=== PATIENT | male | born 1940 | race Caucasian/White ===

== ENCOUNTER → 2016-12-02 | Outpatient (CLI) | payer MEDICARE ==
[~2016-12-02] MED LIST: ALPR.25 PO; ATOR1TAB18 PO; ATOR80TA PO; AZIT250T43 PO; BUPR100T4 PO; CEFD300C PO; CEPH-460 PO; FOLI1TAB6 PO; GUAISYP7 PO; L-LY500T4 PO; LEVS0.123 PO; LOSA25; LOSA25TA PO; METO50TA; METO50TA PO; MULT-65 PO; OMEGCAP PO; ROBIACUDC PO; TAMS0.4C4; TAMS0.4C4 PO; TEMA15 PO; ZOLP10TA3 PO; [UNRECOGNIZED DRUG - CODE]
[2016-12-02 15:31] LABS: HEMATOCRIT 41.6 % (39.0-51.0); MEAN CELL VOLUME 92.5 FL (80.0-100.0); MEAN CORPUSCULAR HEMOGLOBIN 30.5 PG (27.0-34.0); PLATELET COUNT 242 TH/MM3 (150-450); RED CELL DISTRIBUTION WIDTH 12.4 % (11.6-17.2); REVIEW FLAG FINAL; WHITE BLOOD COUNT 6.2 TH/MM3 (4.0-11.0)
--- NOTE | 2016-12-03 15:23 | EKG ---
Date Performed: 12/02/2016 Time Performed: 14:30:36 PTAGE: 76 years EKG: SINUS BRADYCARDIA WITH OCCASIONAL SUPRAVENTRICULAR PREMATURE COMPLEXES BORDERLINE ECG PREVIOUS TRACING : 04/16/2015 15.34 Compared to the previous tracing rate slower DOCTOR: Lauren Bernard Interpretating Date/Time 12/03/2016 15:22:53
== END ==
LOC: CPRE 13:36
PROVIDERS: ATTEND Specialist
DX: Z01.810 Encounter for preprocedural cardiovascular examination (principal); Z01.812 Encounter for preprocedural laboratory examination; R94.31 Abnormal electrocardiogram [ECG] [EKG]
CPT/HCPCS: 36415; 85027; 93005

== ENCOUNTER 2016-12-04 13:03 | Emergency (ER) | payer MEDICARE ==
[~2016-12-04 13:03] MED LIST changes: -ACETAMINOPHEN 1000 MG/100 ML 100 ML IV ONE; -ACETAMINOPHEN/HYDROcodone 325 MG/7.5 MG TAB PO PRN; -CHLORHEXIDINE GLUCONATE 2 % 1 PACK (2 CLOTHS) TOPICAL PRN; -DEXAMETHASONE SOD PHOS 4 MG/ML VIAL ONE; -DO NOT ADM ANY ANTICOAGULANT DRUGS PRN; -EPINEPHrine HCL (1:1000) 30 MG/30 ML VIAL ONE; -FAMOTIDINE 20 MG/2 ML VIAL ONE; -GLYCOPYRROLATE 1 MG/5 ML SYRINGE IV PUSH ONE; -INSULIN HUMAN REGULAR 1,000 UNITS/10 ML VIAL SQ PRN; -LACTATED RINGER'S 1000 ML IV PRN; -LEVS0.123 PO; -LIDOCAINE 1%/EPINEPHrine 1:100,000 SOLN 30 ML VIAL INFIL ONE; -LIDOCAINE HCL 1% PF 5 ML AMPULE OTHER ONE; -METOPROLOL TARTRATE 25 MG TAB PO PRN; -MORPHINE SULFATE 4 MG/ML INJ IV PRN; -NEOSTIGMINE 3 MG/3 ML SYR IV ONE; -ONDANSETRON HCL 4 MG/2 ML VIAL IV PUSH ONE; -ONDANSETRON HCL 4 MG/2 ML VIAL IV PUSH PRN; -PHENYLEPH/NS 1000 MCG/10 ML SYR IV ONE; -POVIDONE IODINE 5% (ANTISEPSIS KIT) 4 APPLICATIONS EACH NARE PRN; -PROPOFOL 200 MG/20 ML AMP IV ONE; -ROCURONIUM INJ 50 MG/5 ML SYRINGE IV PUSH ONE; -SODIUM CHLORID 0.9% 500 ML IV PRN; -[UNRECOGNIZED DRUG - CODE]; -ePHEDrine/NS 25 MG/5 ML SYR IV ONE
[2016-12-04 13:30] LABS: BLOOD, URINE NEG (NEG); GLUCOSE,URINE NEG (NEG); KETONE, URINE NEG (NEG); NITRITE,URINE NEG (NEG); PH, URINE 6.5 (5.0-8.5)
[2016-12-04 13:39] LABS: METHOD OF COLLECTION CLEAN CATCH; URINE COLOR YELLOW (YELLW/STRAW)
--- NOTE | 2016-12-04 13:39 | PD ---
HPI Chief Complaint: Complaint Time Seen by Provider: 13:27 Travel History International Travel<30 days: No Contact w/Intl Traveler<30days: No Traveled to known affect area: No History of Present Illness HPI The patient is a 76-year-old male who presents to the emergency department via private vehicle for urinary retention. The patient had septoplasty performed earlier today by the ENT physician, Dr. Barton. The patient states after surgery he was unable to urinate, has had minimal output and complains of abdominal distention. The patient does have a history of benign prostatic hypertrophy and currently takes Flomax twice a day. He denies any history of severe urinary retention requiring a Franks catheter, however, is followed by his urologist Dr. Park. The patient does complain of abdominal distention with difficulty urinating, denies any nausea, vomiting, or constipation. He denies any associated fever, chills, or sweats. He does complain of a dry mouth after the surgery. Symptoms are mild to moderate, possibly exacerbated by BPH and anesthesia this morning, and there are no current alleviating factors. PFSH Past Medical History Atrial Fibrillation: Yes (STATES SECONDARY TO DEHYDRATION) Autoimmune Disease: Yes (GUILLANNE BARRE) Anxiety: Yes Depression: Yes Heart Rhythm Problems: Yes (afib) Cancer: No Cardiovascular Problems: Yes (PAROXYSMAL ATRIAL FIBRILLATION, BRADYCARDIA) High Cholesterol: Yes Congestive Heart Failure: No Diabetes: No Diminished Hearing: No Endocrine: No Gastrointestinal Disorders: Yes (DIVERTICULUM QUESTIONABLE) Genitourinary: Yes (BPH) Hepatitis: No Hiatal Hernia: No Hypertension: Yes Immune Disorder: No Musculoskeletal: No Neurologic: Yes (GUILLAIN-BARRE SYNDROME) Psychiatric: Yes Reproductive: No Respiratory: No Thyroid Disease: No Tetanus Vaccination: < 5 Years Influenza Vaccination: Yes Past Surgical History Abdominal Surgery: Yes (APPENDECTOMY) AICD: No Appendectomy: Yes Cardiac Surgery: No Ear Surgery: No Endocrine Surgery: No Eye Surgery: No Genitourinary Surgery: No Joint Replacement: No Oral Surgery: No Pacemaker: No Thoracic Surgery: No Tonsillectomy: Yes Other Surgery: Yes (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, NASAL RECONSTRUCTION, sinus surgery today) Social History Alcohol Use: Yes (GLASS OF WINE AT NIGHT) Tobacco Use: No Substance Use: No Allergies-Medications (Allergen,Severity, Reaction): Coded Allergies: lamotrigine (Verified Allergy, Severe, Itching, 12/04/16) Reported Meds & Prescriptions Reported Meds & Active Scripts Active Reported Keflex (Cephalexin) 500 Mg Cap 500 Mg PO Q12H Bupropion HCl 100 Mg Tab 100 Mg PO DAILY l-Lysine (Lysine) 500 Mg Tab 1 Tab PO DAILY [place]-3 Fish Oil/Vitamin (Fish Oil-Cholecalciferol) 1,000-1,000 Mg Cap 1 Cap PO DAILY Folic Acid 1 Mg Tablet 1 Mg PO DAILY Multi-Vitamin Daily (Multiple Vitamin) 1 Tab Tab 1 Tab PO DAILY Zolpidem (Zolpidem Tartrate) 10 Mg Tab 10 Mg PO HS PRN Tamsulosin (Tamsulosin HCl) 0.4 Mg Cap 0.4 Mg PO BID Metoprolol Tartrate 50 Mg Tab 50 Mg PO BID Losartan (Losartan Potassium) 25 Mg Tab 25 Mg PO DAILY PRN Xanax (Alprazolam) 0.25 Mg Tab 0.25 Mg PO Q6H PRN Atorvastatin (Atorvastatin Calcium) 80 Mg Tab 80 Mg PO HS Review of Systems Except as stated in HPI: all other systems reviewed are Neg General / Constitutional: No: Fever HENT: Positive: Other (septoplasty performed earlier today) Cardiovascular: No: Chest Pain or Discomfort Respiratory: No: Shortness of Breath Gastrointestinal: Positive: Abdominal Pain, No: Nausea, Vomiting Genitourinary: Positive: Decreased Urinary Output Physical Exam Narrative GENERAL: Awake, alert, pleasant 76-year-old male who appears his stated age is in no acute respiratory distress. SKIN: Focused skin assessment warm/dry. HEAD: Atraumatic. Normocephalic. EYES: Pupils equal and round. No scleral icterus. No injection or drainage. ENT: Nasal dressing in place. NECK: Trachea midline. No JVD. GASTROINTESTINAL: Abdomen reveals distended bladder just below the umbilicus. MUSCULOSKELETAL: No obvious deformities. No clubbing. No cyanosis. No edema. NEUROLOGICAL: Awake and alert. No obvious cranial nerve deficits. Motor grossly within normal limits. Normal speech. PSYCHIATRIC: Appropriate mood and affect; insight and judgment normal. Data Data Orders Orders Urinalysis - C+S If Indicated (12/04/16 13:14) Urinary Catheter Insert/Apply (12/04/16 13:27) Basic Metabolic Panel (Bmp) (12/04/16 13:27) Labs Laboratory Tests Test 12/04/16 13:15 12/04/16 14:12 Urine Collection Type CLEAN CATCH Urine Color YELLOW Urine Turbidity CLEAR Urine pH 6.5 Urine Specific [place] 1.011 Urine Protein NEG mg/dL Urine Glucose (UA) NEG mg/dL Urine Ketones NEG mg/dL Urine Occult Blood NEG Urine Nitrite NEG Urine Bilirubin NEG Urine Leukocyte Esterase NEG Urine RBC 0-3 /hpf Urine WBC 0-2 /hpf Microscopic Urinalysis Comment CULT NOT INDICATED Blood Urea Nitrogen 17 MG/DL Creatinine 0.90 MG/DL Random Glucose 134 MG/DL Calcium Level 9.1 MG/DL Sodium Level 138 MEQ/L Potassium Level 4.3 MEQ/L Chloride Level 104 MEQ/L Carbon Dioxide Level 28.3 MEQ/L Anion Gap 6 MEQ/L Estimat Glomerular Filtration Rate 82 ML/MIN [facility] Medical Decision Making Medical Screen Exam Complete: Yes Emergency Medical Condition: Yes Medical Record Reviewed: Yes Interpretation(s) Laboratory Tests Test 12/04/16 13:15 12/04/16 14:12 Urine Collection Type CLEAN CATCH Urine Color YELLOW Urine Turbidity CLEAR Urine pH 6.5 Urine Specific [place] 1.011 Urine Protein NEG mg/dL Urine Glucose (UA) NEG mg/dL Urine Ketones NEG mg/dL Urine Occult Blood NEG Urine Nitrite NEG Urine Bilirubin NEG Urine Leukocyte Esterase NEG Urine RBC 0-3 /hpf Urine WBC 0-2 /hpf Microscopic Urinalysis Comment CULT NOT INDICATED Blood Urea Nitrogen 17 MG/DL Creatinine 0.90 MG/DL Random Glucose 134 MG/DL Calcium Level 9.1 MG/DL Sodium Level 138 MEQ/L Potassium Level 4.3 MEQ/L Chloride Level 104 MEQ/L Carbon Dioxide Level 28.3 MEQ/L Anion Gap 6 MEQ/L Estimat Glomerular Filtration Rate 82 ML/MIN Differential Diagnosis Differential diagnoses includes urinary retention, BPH, anesthesias side effect , UTI, acute renal failure. Narrative Course Bedside ultrasound was performed which does reveal a distended bladder, therefore, Franks catheter was placed. BMP and UA were sent to lab. The Franks catheter was attached to a leg bag. I placed a courtesy call to the patient's ENT physician, Dr. Barton, and spoke with his nurse who is aware of the patient' s urinary retention after the septoplasty this morning. UA is unremarkable. BMP reveals normal BUN and creatinine. The patient at 1.4 L of output, his symptoms had significantly improved. The patient was attached to a leg bag is advised to follow-up with his urologist, Dr. Park. He is also advised to continue taking his Flomax as previously directed. Procedures Procedure Narrative A bedside ultrasound was performed using a curvilinear probe which reveals a distended urinary bladder. The patient tolerated the procedure without difficulty and there was no obvious complications. Diagnosis Primary Impression: Urinary retention Patient Instructions: General Instructions Additional Instructions: Continue Flomax as previously directed. Franks catheter with leg bag as directed. Follow-up with your urologist. Return if symptoms worsen or progress. Please provide a patient a copy of his lab results at discharge. Med/Other Pt SpecificInfo: No Change to Meds Disposition: 01 DISCHARGE HOME Condition: Stable Alejo Tao MD Dec 04, 2016 13:39
[2016-12-04 13:40] LABS: COMMENT (UR) CULT NOT INDICATED; CULTURE IF INDICATED CULT NOT INDICATED; RBC, URINE 0-3 /hpf (0-3); WBC, URINE 0-2 /hpf (0-5)
[2016-12-04 14:24] LABS: POTASSIUM 4.3 MEQ/L (3.5-5.1)
[2016-12-04 14:28] LABS: BICARBONATE 28.3 MEQ/L (21.0-32.0)
== END 2016-12-04 15:54 | disposition home or self-care (01) ==
LOC: PHED 13:03
DX: N40.1 Benign prostatic hyperplasia with lower urinary tract symptoms (principal); R33.8 Other retention of urine
CPT/HCPCS: 51702; 80048; 81001

== ENCOUNTER → 2016-12-04 | Day surgery (SDC) | payer MEDICARE ==
--- NOTE | 2016-12-03 19:14 | MH ---
cc: MELLY GIRARD DATE OF ADMISSION 12/04/2016 HISTORY OF THE PRESENT ILLNESS Mr. Lopez is a 76-year-old gentleman with persistent nasal obstruction and chronic sinusitis for open septal reconstruction, bilateral inferior turbinectomy, bilateral maxillary antrostomy. PAST MEDICAL HISTORY Notable for bradycardia. REVIEW OF SYSTEMS Unremarkable. FAMILY HISTORY Unremarkable SOCIAL HISTORY Unremarkable. MEDICATIONS Listed on medical chart. PHYSICAL EXAMINATION GENERAL: Well-appearing patient, no acute distress noted. HEENT: Exam reveals septal deviation, turbinate hypertrophy, mucopurulent crusting. Oral cavity within normal limits. NECK: Within normal limits. LUNGS: Clear. HEART: Regular rate and rhythm. ABDOMEN: Soft and nontender. EXTREMITIES: Without cyanosis, clubbing or edema. NEUROLOGIC: Alert, oriented, nonfocal neurologic exam. IMPRESSION Patient with chronic sinusitis and nasal obstruction for nasal sinus surgery. Instructed in the method of surgery and possible complications include anesthetic complications, cardiac difficulty, pulmonary difficulty, stroke, or even . Surgical complications bleeding, infection, risk of septal perforation, persistent nasal obstruction, bloody crusting, decreased sense of smell, hemorrhage and transfusion and packing requirement. The patient appeared to agree, accept and understand above-mentioned risks and benefits. In addition no guarantees or warranties regarding outcome were given. We will therefore proceed with surgery. MD MICHAEL Moreno/GIORGIO /6:37 PM /7:00 PM
[~2016-12-04] VITALS: Ht 170.2 cm; Wt 69.6 kg
[~2016-12-04] MED LIST changes: +ACETAMINOPHEN 1000 MG/100 ML 100 ML IV ONE; +ACETAMINOPHEN/HYDROcodone 325 MG/7.5 MG TAB PO PRN; -ATOR80TA PO; -AZIT250T43 PO; -CEFD300C PO; +CHLORHEXIDINE GLUCONATE 2 % 1 PACK (2 CLOTHS) TOPICAL PRN; +DEXAMETHASONE SOD PHOS 4 MG/ML VIAL ONE; +DO NOT ADM ANY ANTICOAGULANT DRUGS PRN; +EPINEPHrine HCL (1:1000) 30 MG/30 ML VIAL ONE; +FAMOTIDINE 20 MG/2 ML VIAL ONE; +GLYCOPYRROLATE 1 MG/5 ML SYRINGE IV PUSH ONE; +INSULIN HUMAN REGULAR 1,000 UNITS/10 ML VIAL SQ PRN; +LACTATED RINGER'S 1000 ML IV PRN; +LIDOCAINE 1%/EPINEPHrine 1:100,000 SOLN 30 ML VIAL INFIL ONE; +LIDOCAINE HCL 1% PF 5 ML AMPULE OTHER ONE; -LOSA25; -METO50TA; +METOPROLOL TARTRATE 25 MG TAB PO PRN; +MORPHINE SULFATE 4 MG/ML INJ IV PRN; +NEOSTIGMINE 3 MG/3 ML SYR IV ONE; +ONDANSETRON HCL 4 MG/2 ML VIAL IV PUSH ONE; +ONDANSETRON HCL 4 MG/2 ML VIAL IV PUSH PRN; +PHENYLEPH/NS 1000 MCG/10 ML SYR IV ONE; +POVIDONE IODINE 5% (ANTISEPSIS KIT) 4 APPLICATIONS EACH NARE PRN; +PROPOFOL 200 MG/20 ML AMP IV ONE; -ROBIACUDC PO; +ROCURONIUM INJ 50 MG/5 ML SYRINGE IV PUSH ONE; +SODIUM CHLORID 0.9% 500 ML IV PRN; -TAMS0.4C4; -TEMA15 PO; +ePHEDrine/NS 25 MG/5 ML SYR IV ONE
[2016-12-04 09:20] VITALS: BP 121/63; PULSE 59; RESP 18; TEMP 96.1; O2SAT 97
--- NOTE | 2016-12-04 12:22 | MP ---
cc: MELLY GIRARD DATE OF SURGERY 12/04/2016 PREOPERATIVE DIAGNOSES Nasal obstruction. Chronic sinusitis. PROCEDURE Open septal reconstruction, bilateral inferior submucous resection of inferior turbinate and bilateral endoscopic maxillary antrostomy. ANESTHESIA General anesthesia. ESTIMATED BLOOD LOSS Minimal. COMPLICATIONS No complications. OPERATING SURGEON Dr. Girard OPERATION FOLLOWS Prepped and draped in the usual fashion. 1% Xylocaine with 1:100,000 epinephrine injected into the nasal septum, inferior turbinate and middle meatus bilaterally. 1:1000 adrenaline soaked pledgets were placed and removed. Under endoscopic visualization, natural antrostomy identified and enlarged with a curved suction on the left and a curved suction on the right. A mucoperichondrial incision was made in the columella on the left side. A mucoperichondrial flap was elevated. A significant amount of bone, cartilage and significant amount of scar tissue were removed to improve the nasal airway. Mucoperichondrial flap was reapproximated. A second mucoperichondrial incision was made further back on the left side and mucoperichondrial flap elevated. A significant amount of bone was removed from this incision. The mucoperichondrial flap was reapproximated. This effectively reduced the nasal fracture. The remainder of the inferior turbinate was partially submucosally vaporized with multiple insertions of the Coblator probe with power level of IV. This was performed under direct and endoscopic visualization. No active bleeding was noted. The patient tolerated the procedure well MD MICHAEL Moreno/ASHER /9:37 AM /12:09 PM
== END | disposition home or self-care (01) ==
LOC: HSDC 05:33
PROVIDERS: ATTEND Specialist
DX: J34.89 Other specified disorders of nose and nasal sinuses (principal); J32.9 Chronic sinusitis, unspecified; I10 Essential (primary) hypertension; E78.5 Hyperlipidemia, unspecified; I48.91 Unspecified atrial fibrillation; R00.1 Bradycardia, unspecified; Z79.899 Other long term (current) drug therapy
CPT/HCPCS: 00160; 30140; 30520; 31256; J0131; J0171; J1100; J7120; J2370; J2405; J2710; J3010

== ENCOUNTER 2016-12-06 15:08 | Emergency (ER) | payer MEDICARE ==
[~2016-12-06] VITALS: Ht 170.2 cm; Wt 69.8 kg
[2016-12-06 15:28] VITALS: BP 133/68; PULSE 58; RESP 16; TEMP 99.3; O2SAT 93
[2016-12-06] MEDS ORDERED: [UNRECOGNIZED DRUG - CODE] (16:53)
--- NOTE | 2016-12-06 17:49 | PD ---
HPI Chief Complaint: Pain: Acute or Chronic Time Seen by Provider: 16:52 Travel History International Travel<30 days: No Contact w/Intl Traveler<30days: No Traveled to known affect area: No History of Present Illness HPI Patient is a 76 yo male with PMH of hypospadias, insomnia, Guillain-[place], genital herpes presenting to the ER with urinary retention and spasm. The patient says he had an ENT surgery on morning and a couple hours after the surgery he had Urinary retention. He was unable to void much after the surgery and came to the hospital that same day. The patient had a [place] placed relieving his symptoms and emptying 600 cc. The patient states on Thursday he saw his Urologist and had another appointment scheduled for Thursday. However 12 am Thursday he had sever lower abdominal pain and a spasm radiating superiorly throughout his body. He states these spasms are debilitating and he had about 8- 10 throughout the day so far. Also, the patient reveals fecal urgency that has started today and he is unable to make it to the bathroom at times. The patient states he believes he has a fistula after doing some research on his own. He has never had a fistula before. Denies any fever denies any stool in the urine. He reveals he also has had an unintentional weight loss of 10 lbs during the past year even though he says he "eats like a horse." The patient denies fever, odor to his urine, constant leakage from his rectum, hematuria, hematochezia, constant abdominal pain, nausea, vomiting, SOB, and chest pain. PMH: 1969 Guillain-[place], genital herpes, hypospadias, insomnia Surgical: Appendectomy, lipoma removal, tonsillectomy, vasectomy Family HX: No family history of /Nephro problems Social: Negative for tobacco, 1 alcoholic drink a night, denies other drug use. Meds: Keflex, metoprolol, atorvastatin, bupropion, alprazolam, losartan PFSH Past Medical History Atrial Fibrillation: Yes (STATES SECONDARY TO DEHYDRATION) Autoimmune Disease: Yes (GUILLANNE BARRE) Anxiety: Yes Depression: Yes Heart Rhythm Problems: Yes (afib) Cancer: No Cardiovascular Problems: Yes (PAROXYSMAL ATRIAL FIBRILLATION, BRADYCARDIA) High Cholesterol: Yes Congestive Heart Failure: No Diabetes: No Diminished Hearing: No Endocrine: No Gastrointestinal Disorders: Yes (DIVERTICULUM QUESTIONABLE) Genitourinary: Yes (BPH) Hepatitis: No Hiatal Hernia: No Hypertension: Yes Immune Disorder: No Musculoskeletal: No Neurologic: Yes (GUILLAIN-BARRE SYNDROME) Psychiatric: Yes Reproductive: No Respiratory: No Thyroid Disease: No ?: Not Past Surgical History Abdominal Surgery: Yes (APPENDECTOMY) AICD: No Appendectomy: Yes Cardiac Surgery: No Ear Surgery: No Endocrine Surgery: No Eye Surgery: No Genitourinary Surgery: No Joint Replacement: No Oral Surgery: No Pacemaker: No Thoracic Surgery: No Tonsillectomy: Yes Other Surgery: Yes (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, NASAL RECONSTRUCTION, sinus surgery today) Social History Alcohol Use: Yes (GLASS OF WINE AT NIGHT) Tobacco Use: No Substance Use: No Allergies-Medications (Allergen,Severity, Reaction): Coded Allergies: lamotrigine (Verified Allergy, Severe, Itching, 12/04/16) Sulfa (Sulfonamide Antibiotics) (Verified Allergy, Unknown, 12/06/16) Reported Meds & Prescriptions Reported Meds & Active Scripts Active Levsin (Hyoscyamine Sulfate) 0.125 Mg Tab 0.125 Mg PO Q6H PRN Reported Phosphatidylserine (Soybean Lecithin (Bulk)) 40 % Pow Keflex (Cephalexin) 500 Mg Cap 500 Mg PO Q12H Bupropion HCl 100 Mg Tab 100 Mg PO DAILY l-Lysine (Lysine) 500 Mg Tab 1 Tab PO DAILY [place]-3 Fish Oil/Vitamin (Fish Oil-Cholecalciferol) 1,000-1,000 Mg Cap 1 Cap PO DAILY Folic Acid 1 Mg Tablet 1 Mg PO DAILY Multi-Vitamin Daily (Multiple Vitamin) 1 Tab Tab 1 Tab PO DAILY Zolpidem (Zolpidem Tartrate) 10 Mg Tab 10 Mg PO HS PRN Tamsulosin (Tamsulosin HCl) 0.4 Mg Cap 0.4 Mg PO BID Metoprolol Tartrate 50 Mg Tab 50 Mg PO BID Losartan (Losartan Potassium) 25 Mg Tab 25 Mg PO DAILY PRN Xanax (Alprazolam) 0.25 Mg Tab 0.25 Mg PO Q6H PRN Atorvastatin (Atorvastatin Calcium) 80 Mg Tab 80 Mg PO HS Review of Systems Except as stated in HPI: all other systems reviewed are Neg Physical Exam Narrative GENERAL: Well-developed well-nourished In no acute distress, SKIN: Warm and dry. HEAD: Atraumatic. Normocephalic. EYES: Pupils equal and round. No scleral icterus. No injection or drainage. ENT: No nasal bleeding or discharge. Mucous membranes pink and moist. NECK: Trachea midline. No JVD. CARDIOVASCULAR: Regular rate and rhythm. RESPIRATORY: No accessory muscle use. Clear to auscultation. Breath sounds equal bilaterally. GASTROINTESTINAL: Abdomen soft, non-tender, nondistended. Hepatic and splenic margins not palpable. Urology: washing[place] catheter in place when entering room, mild hypospadias. Mild bladder distension MUSCULOSKELETAL: Extremities without clubbing, cyanosis, or edema. No obvious deformities. NEUROLOGICAL: Awake and alert. No obvious cranial nerve deficits. Motor grossly within normal limits. Five out of 5 muscle strength in the arms and legs. Normal speech. PSYCHIATRIC: Appropriate mood and affect; insight and judgment normal. Data Data Last Documented VS Vital Signs Date Time Temp Pulse Resp B/P (MAP) Pulse Ox O2 Delivery O2 Flow Rate FiO2 12/06/16 15:28 99.3 58 16 133/68 (89) 93 Orders Orders Urinalysis - C+S If Indicated (12/06/16 17:40) Ed Poc Ultrasound (12/06/16 ) Labs Laboratory Tests Test 12/06/16 17:56 Urine Color YELLOW Urine Turbidity CLEAR Urine pH 5.5 Urine Specific [place] 1.007 Urine Protein TRACE mg/dL Urine Glucose (UA) NEG mg/dL Urine Ketones 15 mg/dL Urine Occult Blood LARGE Urine Nitrite NEG Urine Bilirubin NEG Urine Leukocyte Esterase SMALL Urine RBC 25-49 /hpf Urine WBC 3-5 /hpf Urine Squamous Epithelial Cells 0-5 /hpf Urine Calcium Oxalate Crystals MOD /hpf Urine Bacteria NONE /hpf Microscopic Urinalysis Comment CULT NOT INDICATED MDM Medical Decision Making Medical Screen Exam Complete: Yes Emergency Medical Condition: Yes Differential Diagnosis Bladder spasm, urinary tract infection, [place] catheter in place, urinary retention. Narrative Course Patient roomed emergency department, appears well ambulatory in the examination room. Afebrile. My index of suspicion for an enterovesicular fistula is very low. Patient UA negative, ultrasound reassuring. The patient was placed on Levsin reassured to follow-up with his urologist in 2 days this coming Thursday. Procedures Procedure Narrative Bedside ultrasound bladder shows collapsed bladder around [place] catheter bulb. Minimally thickened bladder wall consistent with bladder spasms. No free fluid in the pelvis. Diagnosis Primary Impression: Bladder spasms Med/Other Pt SpecificInfo: Prescription(s) given Scripts Hyoscyamine (Levsin) 0.125 Mg Tab 0.125 MG PO Q6H Y for BLADDER SPASM, #10 TAB 0 Refills Prov: Eduardo Mcguire MD 12/06/16 Disposition: 01 DISCHARGE HOME Condition: Stable Eduardo Mcguire MD Dec 06, 2016 17:49
[2016-12-06 18:07] LABS: BLOOD, URINE LARGE (NEG); GLUCOSE,URINE NEG (NEG); KETONE, URINE 15 mg/dL (NEG); NITRITE,URINE NEG (NEG); PH, URINE 5.5 (5.0-8.5)
[2016-12-06 18:17] LABS: URINE COLOR YELLOW (YELLW/STRAW)
[2016-12-06 18:18] LABS: CALCIUM OXALATE CRYSTALS,URINE MOD /hpf; COMMENT (UR) CULT NOT INDICATED; CULTURE IF INDICATED CULT NOT INDICATED; SQUAMOUS EPITHELIAL CELL URINE 0-5 /hpf (0-5)
[2016-12-06] MEDS ORDERED: LEVS0.123 PO (18:32)
== END 2016-12-06 18:56 | disposition home or self-care (01) ==
LOC: PHED 15:08
DX: N32.89 Other specified disorders of bladder (principal); R15.2 Fecal urgency; R63.4 Abnormal weight loss; I10 Essential (primary) hypertension; E78.00 Pure hypercholesterolemia, unspecified; Z87.448 Personal history of other diseases of urinary system; Z86.79 Personal history of other diseases of the circulatory system; Z86.59 Personal history of other mental and behavioral disorders; Z87.19 Personal history of other diseases of the digestive system; Z86.69 Personal history of other diseases of the nervous system and sense organs
CPT/HCPCS: 81001; 99284

== ENCOUNTER 2017-07-08 13:38 | Emergency (ER) | payer MEDICARE ==
[~2017-07-08] VITALS: Ht 170.2 cm; Wt 67.0 kg
[~2017-07-08 13:38] MED LIST changes: -ATOR1TAB18 PO; +ATOR80TA45 PO; -GUAISYP7 PO; +LEVS0.123 PO; +[UNRECOGNIZED DRUG - CODE]
[2017-07-08 13:40] VITALS: BP 112/60; PULSE 76; RESP 16; TEMP 98.2; O2SAT 99
--- NOTE | 2017-07-08 14:50 | PD ---
HPI Chief Complaint: Cardiac Complaint Time Seen by Provider: 14:33 Travel History International Travel<30 days: No Contact w/Intl Traveler<30days: No Traveled to known affect area: No History of Present Illness HPI 77-year-old male is complaining of atrial fibrillation. He has had atrial fibrillation off and on for about 10 years. His episodes are usually fairly brief. He gets 2-3 per month. This morning he started having symptoms when he is at the top of some stairs. He felt a little short of breath with some fuzziness in the head. He is on metoprolol. His heart rate is normally bradycardic. He has no history of [place]. He has not had any chest pain. He does have high cholesterol. He has an appointment with Dr. Cotto next week. He is on atorvastatin which he takes 80 mg every other day. He is recently being evaluated for possible prostate cancer. PFSH Past Medical History Hx Anticoagulant Therapy: No Atrial Fibrillation: Yes (STATES SECONDARY TO DEHYDRATION) Autoimmune Disease: Yes (GUILLANNE BARRE) Anxiety: Yes Depression: Yes Heart Rhythm Problems: Yes (afib) Cancer: No Cardiovascular Problems: Yes (A. FIB, HTN) High Cholesterol: Yes Congestive Heart Failure: No Diabetes: No Patient Takes Glucophage: No Diminished Hearing: No Endocrine: No Gastrointestinal Disorders: Yes (DIVERTICULUM QUESTIONABLE) Genitourinary: Yes (BPH) Hepatitis: No Hiatal Hernia: No Hypertension: Yes Immune Disorder: No Implanted Vascular Access Dvce: No Musculoskeletal: No Neurologic: Yes (GUILLAIN-BARRE SYNDROME) Psychiatric: Yes Reproductive: No Respiratory: No Thyroid Disease: No Tetanus Vaccination: Unknown Past Surgical History Abdominal Surgery: Yes (APPENDECTOMY) AICD: No Appendectomy: Yes Cardiac Surgery: No Ear Surgery: No Endocrine Surgery: No Eye Surgery: No Genitourinary Surgery: No Joint Replacement: No Neurologic Surgery: No Oral Surgery: No Pacemaker: No Thoracic Surgery: No Tonsillectomy: Yes Other Surgery: Yes (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, NASAL RECONSTRUCTION, sinus surgery today) Social History Alcohol Use: Yes (GLASS OF WINE AT NIGHT) Tobacco Use: No Substance Use: No Allergies-Medications (Allergen,Severity, Reaction): Coded Allergies: lamotrigine (Verified Allergy, Severe, Itching, 07/08/17) Sulfa (Sulfonamide Antibiotics) (Verified Allergy, Unknown, 07/08/17) Reported Meds & Prescriptions Reported Meds & Active Scripts Active Levsin (Hyoscyamine Sulfate) 0.125 Mg Tab 0.125 Mg PO Q6H PRN Reported Bupropion HCl 100 Mg Tab 100 Mg PO DAILY l-Lysine (Lysine) 500 Mg Tab 1 Tab PO DAILY [place]-3 Fish Oil/Vitamin (Fish Oil-Cholecalciferol) 1,000-1,000 Mg Cap 1 Cap PO DAILY Folic Acid 1 Mg Tablet 1 Mg PO DAILY Multi-Vitamin Daily (Multiple Vitamin) 1 Tab Tab 1 Tab PO DAILY Zolpidem (Zolpidem Tartrate) 10 Mg Tab 10 Mg PO HS PRN Tamsulosin (Tamsulosin HCl) 0.4 Mg Cap 0.4 Mg PO BID Metoprolol Tartrate 50 Mg Tab 50 Mg PO BID Losartan (Losartan Potassium) 25 Mg Tab 25 Mg PO DAILY PRN Xanax (Alprazolam) 0.25 Mg Tab 0.25 Mg PO Q6H PRN Atorvastatin (Atorvastatin Calcium) 80 Mg Tab 80 Mg PO HS Review of Systems General / Constitutional: No: Fever, Chills Eyes: No: Diploplia, Blurred Vision HENT: No: Headaches Cardiovascular: No: Chest Pain or Discomfort Respiratory: Positive: Shortness of Breath Gastrointestinal: No: Nausea, Vomiting Genitourinary: No: Urgency, Frequency Musculoskeletal: No: Myalgias Neurologic: Positive: Weakness, Dizziness Psychiatric: No: Anxiety, Depression Endocrine: No: Heat Intolerance Hematologic/Lymphatic: No: Easy Bruising Physical Exam Narrative GENERAL: Well-developed male SKIN: Focused skin assessment warm/dry. HEAD: Atraumatic. Normocephalic. EYES: Pupils equal and round. No scleral icterus. No injection or drainage. ENT: No nasal bleeding or discharge. Mucous membranes pink and moist. NECK: Trachea midline. No JVD. CARDIOVASCULAR:IRRegular rate and rhythm. No murmur appreciated. RESPIRATORY: No accessory muscle use. Clear to auscultation. Breath sounds equal bilaterally. GASTROINTESTINAL: Abdomen soft, non-tender, nondistended. Hepatic and splenic margins not palpable. MUSCULOSKELETAL: No obvious deformities. No clubbing. No cyanosis. No edema. NEUROLOGICAL: Awake and alert. No obvious cranial nerve deficits. Motor grossly within normal limits. Normal speech. PSYCHIATRIC: Appropriate mood and affect; insight and judgment normal. Data Data Last Documented VS Vital Signs Date Time Temp Pulse Resp B/P (MAP) Pulse Ox O2 Delivery O2 Flow Rate FiO2 07/08/17 14:55 63 16 98/63 (75) 99 Room Air 07/08/17 13:40 98.2 Orders Orders Electrocardiogram (07/08/17 14:47) Complete Blood Count With Diff (07/08/17 14:47) Comprehensive Metabolic Panel (07/08/17 14:47) Troponin I (07/08/17 14:47) B-Type Natriuretic Peptide (07/08/17 14:47) Prothrombin Time / Inr (Pt) (07/08/17 14:47) Act Partial Throm Time (Ptt) (07/08/17 14:47) Magnesium (Mg) (07/08/17 14:47) Thyroid Stimulating Hormone (07/08/17 14:47) Chest, Single Ap (07/08/17 14:58) Labs Laboratory Tests Test 07/08/17 15:05 07/08/17 15:35 White Blood Count 5.4 TH/MM3 Red Blood Count 4.52 MIL/MM3 Hemoglobin 13.8 GM/DL Hematocrit 41.5 % Mean Corpuscular Volume 91.9 FL Mean Corpuscular Hemoglobin 30.5 PG Mean Corpuscular Hemoglobin Concent 33.1 % Red Cell Distribution Width 12.0 % Platelet Count 230 TH/MM3 Mean Platelet Volume 9.5 FL Neutrophils (%) (Auto) 74.3 % Lymphocytes (%) (Auto) 16.5 % Monocytes (%) (Auto) 7.0 % Eosinophils (%) (Auto) 1.3 % Basophils (%) (Auto) 0.9 % Neutrophils # (Auto) 4.0 TH/MM3 Lymphocytes # (Auto) 0.9 TH/MM3 Monocytes # (Auto) 0.4 TH/MM3 Eosinophils # (Auto) 0.1 TH/MM3 Basophils # (Auto) 0.0 TH/MM3 CBC Comment DIFF FINAL Differential Comment Blood Urea Nitrogen 24 MG/DL Creatinine 0.96 MG/DL Random Glucose 146 MG/DL Total Protein 6.9 GM/DL Albumin 3.6 GM/DL Calcium Level 8.9 MG/DL Magnesium Level 2.4 MG/DL Alkaline Phosphatase 34 U/L Aspartate Amino Transf (AST/SGOT) 20 U/L Alanine Aminotransferase (ALT/SGPT) 31 U/L Total Bilirubin 1.0 MG/DL Sodium Level 139 MEQ/L Potassium Level 4.2 MEQ/L Chloride Level 106 MEQ/L Carbon Dioxide Level 27.9 MEQ/L Anion Gap 5 MEQ/L Estimat Glomerular Filtration Rate 76 ML/MIN Troponin I LESS THAN 0.02 NG/ML Thyroid Stimulating Hormone 3rd Gen 1.960 uIU/ML MDM Medical Decision Making Medical Screen Exam Complete: Yes Emergency Medical Condition: Yes Medical Record Reviewed: Yes Differential Diagnosis Differential includes paroxysmal atrial fibrillation, dysrhythmia, Narrative Course Patient first came in they observe the monitor and the patient is clearly in atrial fibrillation with a rate of about 80. Prior to obtaining a full 12-lead he converted to sinus rhythm. When he is in sinus his heart rate is slower in the upper 50s. His lab work is unremarkable. He is feeling better. He is stable for discharge. He sees Dr. Cotto on a regular basis and has an appointment next week. Diagnosis Primary Impression: PAF (paroxysmal atrial fibrillation) Disposition: 01 DISCHARGE HOME Condition: Stable Vipul Winkler MD July 08, 2017 14:50
[2017-07-08 14:55] VITALS: BP 98/63; PULSE 63; RESP 16; O2SAT 99
[2017-07-08 15:13] LABS: BASOPHIL % 0.9 % (0.0-2.0); EOSINOPHIL # 0.1 TH/MM3 (0-0.4); EOSINOPHIL % 1.3 % (0.0-4.0); HEMATOCRIT 41.5 % (39.0-51.0); HEMOGLOBIN 13.8 GM/DL (13.0-17.0); LYMPH % 16.5 % (9.0-44.0); LYMPHOCYTE # 0.9 TH/MM3 (1.0-4.8); MEAN CELL VOLUME 91.9 FL (80.0-100.0); MEAN CORPUSCULAR HEMOGLOBIN 30.5 PG (27.0-34.0); MEAN CORPUSCULAR HGB CONC 33.1 % (32.0-36.0); MEAN PLATELET VOLUME 9.5 FL (7.0-11.0); MONOCYTE # 0.4 TH/MM3 (0-0.9); NEUT % 74.3 % (16.0-70.0); PLATELET COUNT 230 TH/MM3 (150-450); RED BLOOD COUNT 4.52 MIL/MM3 (4.50-5.90); WHITE BLOOD COUNT 5.4 TH/MM3 (4.0-11.0)
[2017-07-08 15:20] LABS: CHLORIDE 106 MEQ/L (98-107); SODIUM (NA) 139 MEQ/L (136-145)
[2017-07-08 15:24] LABS: ALBUMIN 3.6 GM/DL (3.4-5.0); BICARBONATE 27.9 MEQ/L (21.0-32.0); CALCIUM 8.9 MG/DL (8.5-10.1); GLUCOSE,RANDOM 146 MG/DL (74-106); MAGNESIUM 2.4 MG/DL (1.5-2.5)
[2017-07-08 15:25] LABS: BLOOD UREA NITROGEN 24 MG/DL (7-18)
[2017-07-08 15:27] LABS: ALT (GPT) 31 U/L (12-78); AST (GOT) 20 U/L (15-37)
[2017-07-08 15:28] LABS: CREATININE 0.96 MG/DL (0.60-1.30); GLOMERULAR FILTRATION RATE 76 ML/MIN (>89)
[2017-07-08 15:29] LABS: TOTAL PROTEIN 6.9 GM/DL (6.4-8.2)
[2017-07-08 15:30] LABS: ALKALINE PHOSPHATASE 34 U/L (45-117)
[2017-07-08 15:33] LABS: TROPONIN I LESS THAN 0.02 NG/ML (0.02-0.05)
--- NOTE | 2017-07-08 15:46 | RADRPT ---
EXAM DATE/TIME: 07/08/2017 15:16 [facility] COMPARISON: CHEST PA & LAT, April 14, 2015, 23:33. INDICATIONS : Irregular heart rate starting today MEDICAL HISTORY : AFIB SURGICAL HISTORY : None. ENCOUNTER: Initial ACUITY: 1 day PAIN SCORE: 0/10 LOCATION: Bilateral chest FINDINGS: A single view of the chest demonstrates the lungs to be symmetrically aerated without evidence of mas s, infiltrate or effusion. Hyperaeration of both lung georges. The cardiomediastinal contours are unre markable. Osseous structures are intact. CONCLUSION: No acute disease. No significant change has occurred. Patrick Caro MD on July 08, 2017 at 15:43 Board Certified Radiologist. This report was verified electronically.
[2017-07-08 15:55] VITALS: BP 104/54; PULSE 49; RESP 16; O2SAT 97
[2017-07-08 16:01] LABS: INTERNATIONAL NORMALIZED RATIO 1.1 RATIO; PROTHROMBIN TIME - PATIENT 10.8 SEC (9.8-11.6)
[2017-07-08 16:11] VITALS: BP 99/66
--- NOTE | 2017-07-09 14:27 | EKG ---
Date Performed: 07/08/2017 Time Performed: 14:57:25 PTAGE: 77 years EKG: SINUS BRADYCARDIA WITH SINUS ARRHYTHMIA BORDERLINE ECG Since the PREVIOUS TRACING , no significant change noted PREVIOUS TRACIN12/02/2016 14.30 DOCTOR: Vandana Callaway Interpretating Date/Time 07/09/2017 14:20:59
== END 2017-07-08 16:12 | disposition home or self-care (01) ==
LOC: PHED 13:38
DX: I48.0 Paroxysmal atrial fibrillation (principal); R94.31 Abnormal electrocardiogram [ECG] [EKG]; R06.02 Shortness of breath; E78.00 Pure hypercholesterolemia, unspecified; G61.0 Guillain-Barre syndrome; F41.9 Anxiety disorder, unspecified; F32.9 Major depressive disorder, single episode, unspecified; I10 Essential (primary) hypertension; N40.0 Benign prostatic hyperplasia without lower urinary tract symptoms
CPT/HCPCS: 71045; 80053; 83735; 83880; 84443; 84484; 85025; 85610; 85730; 93005; 99285